=== PATIENT | female | born 1960 | race Caucasian/White ===

== ENCOUNTER 2021-04-01 05:21 | Inpatient (IN) | payer MEDICAID, SELFPAY ==
[2021-04-01] VITALS (13 sets, daily range): BP systolic 136–162; BP diastolic 79–100; PULSE 86–102; RESP 16–20; TEMP 36.7–37; O2SAT 90–96; BMI 40.9
--- NOTE | 2021-04-01 05:07 | HP.PCM.HOS_ITS ---
HPI - General General Date of Admission: 04/01/21 HPI Narrative Patient is a 60-year-old female with a significant history of hypertension; depression and anxiety who presented to outside Hospital ED ([facility]) with a syncopal episode. Patient was was subsequent transferred to a hospital.Reportedly patient was making noodles. She felt lightheaded; passed out and knocked down a bottle. Her family heard a thud and went over. Importantly 2 weeks ago she had influenza vaccination. Three to four days later she became fatigued and had malaise. She attributed her symptoms to influenza. However patient was encouraged to take the Covid test which she did 8 days before presenting to outside hospital ED ([facility]). Her Covid test came back positive. Patient reports dry coughing and muscle aches. Further, she has decreased oral intake. At outside hospital her oxygen saturation was 91% on room air initially. When an attempt was made to wean her to room and her oxygen saturation was 70 to 80%. After a couple of hours at emergency department a second attempt was made to wean oxygen off and her oxygen saturation dropped to 87%. At the emergency department patient was given a liter of normal saline and then placed on maintenance fluid at 200 mL/h. Labs at outside hospital showed negative troponin; albumin of 3.4; potassium of 3.2; sodium of 140 and creatinine of 1.27. Urinalysis showed positive nitrites; negative leukocyte esterase and 5-10 white blood cells. Patient denies urinary symptoms. [facility] Medical History Allergies Anxiety Depression Hypertension Home Medications cetirizine 10 mg PO DAILY 04/01/21 [History Last Taken 03/31/21] metoprolol succinate 25 mg PO DAILY 04/01/21 [History Last Taken 03/31/21] montelukast 10 mg PO DAILY 04/01/21 [History Last Taken 03/31/21] simvastatin 40 mg PO QHS 04/01/21 [History Last Taken 03/30/21] venlafaxine 150 mg PO DAILY 04/01/21 [History Last Taken 03/31/21] Allergy/AdvReac Type Severity Reaction Status Date / Time codeine Allergy Anaphylaxis Verified 04/01/21 04:45 Iodinated Contrast Media Allergy Hives Verified 04/01/21 04:45 [CONTRASTS] morphine Allergy Anaphylaxis Verified 04/01/21 04:45 Family History (Updated 04/01/21 @ 05:[address] Donte Madden MD) Other Cancer Surgical History Hx of section Hx of cholecystectomy Social History (Updated 04/01/21 @ 05:[address] Donte Madden MD) Smoking Status: Never smoker ROS ROS Narrative Constitutional: Denies fever, chills, fatigue, anorexia and change in weight Eyes: Denies blurry vision, change in eye color, change in vision, discharge from eye(s), double vision, erythema, eye pain, loss of vision or other HEENT: Denies abnormal hearing, dysphagia, ear pain, epistaxis, headache(s), hearing loss, nasal congestion, nasal discharge, post nasal drip, sinus pressure, sore throat or other Cardiovascular: Denies chest pain or palpitations. Denies dyspnea on exertion, orthopnea and paroxysmal nocturnal dyspnea Respiratory/Chest: Reports cough Denies phlegm production, shortness of breath with exertion and wheezing Gastrointestinal: Denies abdominal pain, coffee ground emesis, constipation, diarrhea, dyspepsia, hematemesis, hematochezia, loose stools, melena, nausea, vomiting or other Genitourinary: Denies burning urination, difficulty urinating, dysuria, hematuria, nocturia, urinary frequency, urinary hesitancy, urinary incontinence, urinary urgency or other Musculoskeletal: Reports myalgias. Denies arthralgias, back pain, joint pain, joint stiffness, joint swelling, , neck pain or other Neurologic: Denies abnormal gait, abnormal speech, confusion, disequilibrium, dizziness, focal weakness, headache(s), numbness, paresthesias, seizure-like activity, seizures, syncope, tingling, tremor(s) or other Psychiatric: Denies homicidal ideation, suicidal ideation or other Endocrinology: Denies change in body appearance, cold intolerance, excessive sweating, heat intolerance, polydipsia, polyuria or other Hematologic/Lymphatic: Denies anemia, easy bleeding, easy bruising, lymphadenopathy or other Integumentary: Denies rashes Allergic/Immunologic: Reports allergies. Denies hives, eczema, asthma or other Vital Signs Vital Signs Vital Signs: 04/01/21 04:38 Temperature 98.6 F Temperature Source Oral Pulse Rate 95 Respiratory Rate 20 H Blood Pressure 136/83 H Blood Pressure Mean 100 Blood Pressure Source Monitor Blood Pressure Position Semi-Fowlers Blood Pressure Location Left Forearm Pulse Ox 95 Oxygen Delivery Method Nasal Cannula Oxygen Flow Rate (L/min) 2 Weight Weight: 104.9 kg Body Mass Index (BMI) 40.9 Physical Exam Narrative Physical exam: General: Well-nourished, well-developed. Head: Normocephalic, atraumatic, no tenderness Eyes: PERRLA, EOMI ENT, no trauma, moist mucous membranes, no rhinorrhea Neck: Nontender, full range of motion, no spinal tenderness, deformities, step- off CVS: Regular rate and rhythm. S1-S2 present. No murmur, gallop or rub. Respiratory : Diminished; rales; no wheezes; chest wall nontender. Abdomen: Soft, nontender, nondistended, normal bowel sounds, no masses : Deferred Back: Nontender, no CVA tenderness, no midline spinal tenderness, deformities, step-offs Extremities: Nontender full range of motion, no trauma Skin: Normal color, no trauma, abrasions Neuro: Alert, oriented, cranial nerves II through XII grossly intact. Psychiatry: Normal mood. Normal affect. Not depressed. Not anxious. Assessment & Plan Assessment/Plan (1) Pneumonia due to COVID-19 virus: (2) Diarrhea: QUALIFIERS: Diarrhea type: infectious Qualified Code(s): A09 - Infectious gastroenteritis and colitis, unspecified PLAN: Acute hypoxemic respiratory failure secondary to SARS- COV 2 Patient was saturation of 70 to 80s requiring supplemental oxygenation. Supplemental oxygenation continued. Positive coronavirus test outpatient 8 days before presentation at the emergency department and on the day of presentation to the ED. Impression of chest x-ray by radiologist: Findings suspicious for COVID-19 pneumonia. Review of outside hospital labs showed creatinine of 1.27 and potassium of 3.2. CBC with white count of 4.1 and with lymphopenia. CBC and BMP ordered. Outside window of remdesivir. Discussed emergent department to give patient Decadron. Decadron ordered. Tylenol as needed for fever Mucinex ordered Syncope Secondary to Covid and dehydration. Received IV fluids at the emergency department. Treat Covid. Discussed with patient to hydrate herself orally. Orthostatic vitals ordered. Placed on telemetry. Dairrhea Likely secondary to covid Loperamide ordered DVT Prophylaxis Subcutaneous Lovenox Charges/Coding Visit Charges Inpatient E&M: 83895 Init Hosp L2
--- NOTE | 2021-04-01 07:05 | PCS.PANDOC ---
PANDEMIC DOCUMENTATION INITIATED: Date: 04/01/2021 Time: 1923
[2021-04-01 07:33] LABS: Absolute Lymphocyte Count 0.29 X10^3/uL (0.83-4.51); Absolute Neutrophil Count 2.8 X10^3/uL (2.0-7.7); Hematocrit 38.7 % (37-47); Hemoglobin 12.5 g/dL (12.0-15.0); Lymphocyte # 0.29 X10^3/ul (0.83-4.51); Lymphocyte % 8.8 % (19-41); Mean Corp Hgb Conc 32.3 g/dL (32-36); Mean Corpuscular Hgb 28.6 pg (27.0-32.0); Mean Corpuscular Volume 88.6 fL (81-99); Mean Platelet Vol. 9.3 fl (6.2-12.0); Monocyte# 0.16 X10^3/uL; Monocyte% 4.8 % (0-10); NRBC Flagged by Analyzer 0 % (0-5); Neutrophil # 2.84 X10^3/uL (2.7-7.7); Neutrophil % 86.1 % (47-70); POSITIVE DIFFERENTIAL YES; Platelet Count 180 K/mm3 (150-450); RBC Distribution Width CV 13.7 % (11.6-14.6); RBC Distribution Width SD 44.5 fl (35.1-43.9); Red Blood Count 4.37 M/mm3 (4.2-5.4); White Blood Count 3.3 K/mm3 (4.4-11.0)
[2021-04-01 07:36] LABS: Differential Indicated SCAN CRITERIA MET
[2021-04-01 07:59] LABS: Anion Gap 6 (5-15); BUN 11 mg/dL (7-18); BUN/Creat Ratio 9.6 RATIO (10-20); Calcium,Total 8.4 mg/dL (8.5-10.1); Chloride 104 mmol/L (98-107); Creatinine, Serum 1.14 mg/dL (0.55-1.02); EST Glomerular Filtration Rate 51 mL/min (>60); Est Glom Filt Rate - Afr Amer 62 mL/min (>60); Estimated Creatinine Clearance 42.33 ml/min; Glucose 134 mg/dL (74-106); Sodium Level 138 mmol/L (136-145)
[2021-04-01] MEDS: Menthol/Lanolin/Calamine/Znox 113 GM Tube 1 APPLIC TOPICAL ×2 (09:05→20:45)
[2021-04-01] MEDS: dexAMETHasone 10 MG/ML Vial 6 MG IV (09:06)
[2021-04-01] MEDS: Nystatin Powder 15gm Bottle 1 APPLIC TOPICAL ×2 (09:06→20:46)
[2021-04-01] MEDS: 0.9% Saline Lock 10 ML Syringe IV (09:06)
[2021-04-01] MEDS: guaiFENesin 1,200 MG Tablet 1200 MG PO ×2 (09:06→20:45)
[2021-04-01 09:44] LABS: Procalcitonin 0.21 ng/mL (0.00-0.09)
--- NOTE | 2021-04-01 10:10 | CASEMGMT ---
Addendum entered by Gayathri Art 04/01/21 11:23: TC to [facility], they are able to provide O2 to [place] from a different location. Per [place], the referral will be faxed to [facility], they will provide the portable O2 and then forward the referral to the closest office to [place] for the concentrator set up. Original Note: KISHA PRATT Assessment: Face to Face with pt for initial transition planning/care coordination assessment. RN TERENCE introduced self and role at [facility], pt voices understanding and consents to assessment. Pt is A/O x4 and answers all questions appropriately at this time. Pt lying in bed with O2 on in no distress. Care providers, pharmacy, and demographics verified/updated. Admitting Dx: COVID PNA PCP:Jennifer Christie Specialists:Pt denies. Preferred Pharmacy: [facility] while inpatient Insurance: [facility] Prescription Benefit: yes LW/HPOA: Pt denies having a LW/DPOA and denies need for info regarding AD. LNOK: Yoan Nieto, carlyle Living Arrangements: Pt lives with son and dil and their 5 children in a ground level apt with no steps to enter. Pt reports she is I in ADL's and denies concerns at home. Transportation: Pt drives self and denies concerns with transportation. DME/HHC/SNF: Pt denies having any DME, HHC or SNF stays. Pt states she was first tested for COVID with a home test and then was tested at [facility]. She states her son is also positive and two of her grandchildren. She states she cannot quarantine from family in the apartment as there is only one bathroom. The adults use the bedrooms and the living room is made into make shift bedrooms for the grandchildren. She does have family who can provide them with groceries and supplies. She states they are all quarantining in the home. Discussed local in network DME companies should pt need to go home with home O2, she has no preference. Pt states no concerns with going home at time of dc. Pt states no further concerns/needs. CM to follow. Advised pt to ask CM if any further question/concerns/needs arise, voices understanding. Pt Goal: Home Plan: Home, follow for O2.
[2021-04-01] MEDS: Enoxaparin 30 MG/0.3 ML Syringe SC ×2 (10:52→20:45)
--- NOTE | 2021-04-01 16:02 | PCS.PANDOC ---
PANDEMIC DOCUMENTATION INITIATED: Date: 01/03/2021 Time: 190
--- NOTE | 2021-04-01 17:00 | PN.HOSP_ITS ---
Subjective Subjective The patient states that she is much feeling better. She states that she has a decent appetite. She reports that her fatigue is improved and her breathing is stable. She remains on 2 L nasal cannula with oxygen saturations 94 to 96%. I did drop her to 1 L while is at the bedside. She is interested in possibly g oing home tomorrow if she can maintain stability through the night as far as her oxygenation goes. Objective Data Objective Data Vital Signs: Vital Signs Temp Pulse Resp BP Pulse Ox 98.5 F 93 16 137/79 H 95 04/01/21 14:16 04/01/21 14:16 04/01/21 14:16 04/01/21 14:16 04/01/21 14:16 Oxygen Flow Rate (L/min) 2 Oxygen Delivery Method Nasal Cannula Weight: 104.9 kg Body Mass Index (BMI) 40.9 Intake & Output: Intake and Output for Last 24 Hours 03/30/21 03/31/21 04/01/21 23:59 23:59 23:59 Intake Total 400 / 400 Output Total 700 / 700 Balance -300 / -300 Lab / Micro Data Result Diagrams: 04/01/21 07:17 04/01/21 07:17 Labs: Laboratory Results - last 24 hr 04/01/21 07:17: Procalcitonin 0.21 H 04/01/21 07:17: WBC 3.3 L, RBC 4.37, Hgb 12.5, Hct 38.7, MCV 88.6, MCH 28.6, MCHC 32.3, RDW Std Deviation 44.5 H, RDW Coeff of [place] 13.7, Plt Count 180, MPV 9.3, Immature Gran % (Auto) 0.300, Neut % (Auto) 86.1 H, Lymph % (Auto) 8.8 L, [place] % (Auto) 4.8, Eos % (Auto) 0.0, Baso % (Auto) 0.0, Absolute Neuts (auto) 2.8, Absolute Lymphs (auto) 0.29 L, Nucleated RBC % 0 04/01/21 07:17: Sodium 138, Potassium 4.0, Chloride 104, Carbon Dioxide 28.0, Anion Gap 6, BUN 11, Creatinine 1.14 H, Estim Creat Clear Calc 42.33, Est GFR (MDRD) Af Amer 62, Est GFR (MDRD) Non-Af 51 L, BUN/Creatinine Ratio 9.6 L, Glucose 134 H, Calcium 8.4 L Physical Exam Const alert, oriented x3 and no apparent distress Constitutional Narrative: Morbidly obese white female lying in bed watching television, appears comfortable, nontoxic Exam Limitations: no limitations Nutritional Appearance: morbidly obese HEENT head/scalp atraumatic, moist oral mucous membranes and oropharynx normal HEENT Narrative: Mallampati 2, no thrush Head and Scalp: normocephalic Resp normal respiratory effort, no retractions, no use of accessory muscles and clear to auscultation bilaterally Resp Narrative: Diminished but clear Auscultation: Negative for crackles, rales, rhonchi or wheezes Cardio regular rate, regular rhythm, S1 normal heart sound, S2 normal heart sound, no murmurs, no rub, no gallops, no clicks and no JVD GI normal to inspection, nondistended, normoactive bowel sounds, soft to palpation, non-tender and non-distended Extremity no clubbing, cyanosis or edema Peripheral Pulses: Yes pulses 2+ throughout Neuro oriented x3, moves all extremities and no focal motor deficits Sensorium / Orientation: awake and alert Speech: speech normal Assessment & Plan Assessment/Plan (1) Pneumonia due to COVID-19 virus: (2) Acute and chronic respiratory failure with hypoxia: (3) Syncope: (4) Diarrhea: QUALIFIERS: Diarrhea type: infectious Qualified Code(s): A09 - Infectious gastroenteritis and colitis, unspecified PLAN: Acute hypoxic respiratory failure secondary to COVID-19 virus -Patient is not vaccinated -Continue Decadron day 2 10 -Patient was unfortunately out of the window for remdesivir -Patient is stable on 2 L nasal cannula with oxygen saturations 94 to 96% -I weaned to 1 L -Continue incentive spirometer and Pep therapy -Mucinex -Encourage prone lying -We will need 20 days of isolation from symptom onset -If patient remains stable on 1 to 2 L nasal cannula and ambulatory SPO2 is less than 6 L tomorrow I told her that we would look at discharging her as long as she could maintain a close eye on her oxygen saturations and return to the emergency department if she worsened as she is very anxious to go to home -I did discuss with the patient that she may be vaccinated after she is out of quarantine Syncope -Resolved -Patient has no more feeling of lightheadedness -Orthostatic vitals were assessed when she arrived here but presented from outside hospital and heart already gotten IV fluids -No further events -Take enzymes were normal and EKG was unremarkable -Suspect related to poor p.o. intake and orthostasis Diarrhea -Patient has had no bowel movements here today documented -Per her report it has improved Hypertension -Continue metoprolol Hyperlipidemia -Continue simvastatin Allergies -Continue sertraline Depression -Continue venlafaxine Morbid obesity -BMI 41.0 -Recommend weight loss DVT prophylaxis -Enoxaparin 30 mg twice daily CODE STATUS -Full code verified on admission Charges/Coding Visit Charges Inpatient E&M: 68026 Subs Hosp L2
[2021-04-02] VITALS (14 sets, daily range): BP systolic 112–145; BP diastolic 62–86; PULSE 70–113; RESP 18; TEMP 36.1–36.8; O2SAT 85–98
[2021-04-02 08:17] LABS: Absolute Lymphocyte Count 0.51 X10^3/uL (0.83-4.51); Absolute Neutrophil Count 6.5 X10^3/uL (2.0-7.7); Hematocrit 37.2 % (37-47); Hemoglobin 11.9 g/dL (12.0-15.0); Lymphocyte # 0.51 X10^3/ul (0.83-4.51); Lymphocyte % 6.9 % (19-41); Mean Corpuscular Hgb 28.1 pg (27.0-32.0); Mean Corpuscular Volume 87.9 fL (81-99); Mean Platelet Vol. 9.5 fl (6.2-12.0); Monocyte% 4.1 % (0-10); NRBC Flagged by Analyzer 0 % (0-5); Neutrophil # 6.52 X10^3/uL (2.7-7.7); Neutrophil % 88.6 % (47-70); POSITIVE DIFFERENTIAL YES; Platelet Count 209 K/mm3 (150-450); RBC Distribution Width CV 13.8 % (11.6-14.6); RBC Distribution Width SD 44.2 fl (35.1-43.9); Red Blood Count 4.23 M/mm3 (4.2-5.4); White Blood Count 7.4 K/mm3 (4.4-11.0)
[2021-04-02 08:20] LABS: Differential Indicated SCAN CRITERIA MET
[2021-04-02 08:31] LABS: Anion Gap 5 (5-15); BUN 15 mg/dL (7-18); BUN/Creat Ratio 12.1 RATIO (10-20); Calcium,Total 8.8 mg/dL (8.5-10.1); Chloride 106 mmol/L (98-107); Creatinine, Serum 1.24 mg/dL (0.55-1.02); EST Glomerular Filtration Rate 47 mL/min (>60); Est Glom Filt Rate - Afr Amer 56 mL/min (>60); Estimated Creatinine Clearance 38.91 ml/min; Glucose 119 mg/dL (74-106); Potassium 3.6 mmol/L (3.5-5.1); Sodium Level 140 mmol/L (136-145)
[2021-04-02] MEDS: guaiFENesin 1,200 MG Tablet 1200 MG PO ×2 (09:37→21:46)
[2021-04-02] MEDS: Enoxaparin 30 MG/0.3 ML Syringe SC ×2 (09:37→21:46)
[2021-04-02] MEDS: dexAMETHasone 10 MG/ML Vial 6 MG IV (09:37)
[2021-04-02] MEDS: 0.9% Saline Lock 10 ML Syringe IV (09:38)
[2021-04-02] MEDS: Nystatin Powder 15gm Bottle 1 APPLIC TOPICAL ×2 (09:38→21:45)
[2021-04-02] MEDS: Menthol/Lanolin/Calamine/Znox 113 GM Tube 1 APPLIC TOPICAL ×2 (09:38→21:45)
[2021-04-02 09:40] LABS: Differential Comment SCANNED
[2021-04-02] MEDS: Pantoprazole Sodium 40 MG Tablet PO (13:13)
--- NOTE | 2021-04-02 13:24 | CASEMGMT ---
Nurse Michelle made CM aware that pt is requesting to complete AD at this time. TC to Romana BLACKBURN to make aware.
--- NOTE | 2021-04-02 13:24 | NURSING ---
patient requesting to speak to someone about getting Living will and DPOA done while here. Gayathri Diggs notified.
--- NOTE | 2021-04-02 16:21 | PCM.PN.HOSP ---
Subjective Subjective Patient is complaining of feeling gassy today. She states she takes omeprazole at home and Gas-X at times. The omeprazole not in her MAR so we will add this today. She was assessed for oxygenation at room air at rest she was 85% and improved to 95% at rest on 2 L and ambulated at 97% with 4 L. We were anticipating discharge but she had an episode of lightheadedness/presyncope with ambulation. Her telemetry strips were fine her vital signs were stable she was not hypoxic but states she gets this frequently at home when she is gassy. We will reevaluate tomorrow. She is accepting of this. Objective Data Objective Data Vital Signs: Vital Signs Temp Pulse Resp BP Pulse Ox 97.1 F L 111 H 18 124/62 H 85 04/02/21 09:00 04/02/21 13:39 04/02/21 09:00 04/02/21 09:00 04/02/21 12:48 Oxygen Flow Rate (L/min) [ 2 AMBULATING with Oxygen #1] Oxygen Flow Rate (L/min) [ 4 AMBULATING with Oxygen #2] Oxygen Flow Rate (L/min) [At 0 REST on Room Air] Oxygen Flow Rate (L/min) 2 Oxygen Delivery Method Nasal Cannula Weight: 104.9 kg Body Mass Index (BMI) 40.9 Intake & Output: Intake and Output for Last 24 Hours 03/31/21 04/01/21 04/02/21 23:59 23:59 23:59 Intake Total 400 / 400 280 / 280 Output Total 700 / 700 Balance -300 / -300 280 / 280 Medical Nutrition Assessment Dietitian: Malnutrition Criteria Met Start: 04/01/21 17:04 Freq: Status: Active Protocol: Document 04/01/21 17:04 EVELYN (Rec: 04/01/21 17:04 [facility] [id number]) Nutrition Malnutrition Evidence of Malnutrition Exists Yes Malnutrition (severe): Acute Illness/Injury Evidenced By Suboptimal Energy Intake ( Severe),Weight Loss (Severe) Clinical Problem Acute Disease or Injury Related Malnutrition Etiology related to acute illness and inability to consume adequate nutrition to meet pt est nutritional needs Signs/Symptoms as evidenced by n/v/d correctional officer captain, 3.7 % wt loss and <50% po intake x 2 wks correctional officer captain Status Active Problem Altered Nutrient-Related Laboratory Values Etiology related to steroid administration Signs/Symptoms as evidenced by gluc 134 Status Active Problem Recommendation Dietitian Recommendations/Changes Will continue Cardiac diet Will provide 120 ml ensure enlive w/ meals for increased nutrition if consumed d/t signs and symptoms of malnutrition Lab / Micro Data Result Diagrams: 04/02/21 07:47 04/02/21 07:47 Labs: Laboratory Results - last 24 hr 04/01/21 07:17: Diff Path Review September04/02/21 07:47: WBC 7.4, RBC 4.23, Hgb 11.9 L, Hct 37.2, MCV 87.9, MCH 28.1, MCHC 32.0, RDW Std Deviation 44.2 H, RDW Coeff of [place] 13.8, Plt Count 209, MPV 9.5, Immature Gran % (Auto) 0.400, Neut % (Auto) 88.6 H, Lymph % (Auto) 6.9 L, [place] % (Auto) 4.1, Eos % (Auto) 0.0, Baso % (Auto) 0.0, Absolute Neuts (auto) 6.5, Absolute Lymphs (auto) 0.51 L, Nucleated RBC % 0, Differential Comment SCANNED 04/02/21 07:47: Sodium 140, Potassium 3.6, Chloride 106, Carbon Dioxide 29.0, Anion Gap 5, BUN 15, Creatinine 1.24 H, Estim Creat Clear Calc 38.91, Est GFR (MDRD) Af Amer 56 L, Est GFR (MDRD) Non-Af 47 L, BUN/Creatinine Ratio 12.1, Glucose 119 H, Calcium 8.8 Physical Exam Const alert, oriented x3 and no apparent distress Constitutional Narrative: Morbidly obese white female lying in bed watching television, appears somewhat uncomfortable but nontoxic Exam Limitations: no limitations Nutritional Appearance: morbidly obese HEENT head/scalp atraumatic, moist oral mucous membranes and oropharynx normal Head and Scalp: normocephalic Resp normal respiratory effort, no retractions, no use of accessory muscles and clear to auscultation bilaterally Resp Narrative: Diminished but clear Auscultation: Negative for crackles, rales, rhonchi or wheezes Cardio regular rate, regular rhythm, S1 normal heart sound, S2 normal heart sound, no murmurs, no rub, no gallops, no clicks and no JVD GI normal to inspection, nondistended, normoactive bowel sounds, soft to palpation, non-tender and non-distended Extremity no clubbing, cyanosis or edema Peripheral Pulses: Yes pulses 2+ throughout Neuro oriented x3, moves all extremities and no focal motor deficits Sensorium / Orientation: awake and alert Speech: speech normal Assessment & Plan Assessment/Plan (1) Pneumonia due to COVID-19 virus: (2) Acute and chronic respiratory failure with hypoxia: (3) Syncope: (4) Diarrhea: QUALIFIERS: Diarrhea type: infectious Qualified Code(s): A09 - Infectious gastroenteritis and colitis, unspecified PLAN: Acute hypoxic respiratory failure secondary to COVID-19 virus -Patient is not vaccinated -Continue Decadron day 3 of 10 -Patient was unfortunately out of the window for remdesivir -Patient is stable on 2 L nasal cannula with oxygen saturations 94 to 96% -Continue incentive spirometer and Pep therapy -Mucinex -Encourage prone lying -We will need 20 days of isolation from symptom onset -We planned on discharge but patient had a presyncopal episode that she attributes to some gassiness and abdominal discomfort that she has periodically. She states she gets this at home as well periodically. I feel that we should continue to monitor at this point and reevaluate for discharge tomorrow -I did discuss with the patient that she may be vaccinated after she is out of quarantine Syncope -Resolved -Episode of lightheadedness/presyncope with ambulation today although patient's heart rate was fine blood pressure was good oxygen saturations were normal and telemetry was reviewed and showed nothing but mild tachycardia with a rate of 103 -Orthostatic vitals were assessed when she arrived here but presented from outside hospital and heart already gotten IV fluids -No further events -Take enzymes were normal and EKG was unremarkable -Suspect related to poor p.o. intake and orthostasis Diarrhea -Patient has had no bowel movements here today documented -Per her report it has improved Hypertension -Continue metoprolol Hyperlipidemia -Continue simvastatin Allergies -Continue sertraline GERD/bloating -Start PPI -Start simethicone -Patient states she is get this periodically at home Depression -Continue venlafaxine Morbid obesity -BMI 41.0 -Recommend weight loss DVT prophylaxis -Enoxaparin 30 mg twice daily CODE STATUS -Full code verified on admission Charges/Coding Visit Charges Inpatient E&M: 27705 Subs Hosp L2
[2021-04-02] MEDS: 0.9% Normal Saline 1,000 ML 75 ML IV (18:03)
[2021-04-03] VITALS (11 sets, daily range): BP systolic 123–136; BP diastolic 73–89; PULSE 67–98; RESP 18; TEMP 36.1–36.7; O2SAT 88–97
[2021-04-03 06:29] LABS: Anion Gap 5 (5-15); BUN 21 mg/dL (7-18); Calcium,Total 8.3 mg/dL (8.5-10.1); Chloride 108 mmol/L (98-107); EST Glomerular Filtration Rate 60 mL/min (>60); Est Glom Filt Rate - Afr Amer 72 mL/min (>60); Estimated Creatinine Clearance 48.25 ml/min; Glucose 111 mg/dL (74-106); Potassium 3.7 mmol/L (3.5-5.1); Sodium Level 141 mmol/L (136-145)
[2021-04-03] MEDS: 0.9% Normal Saline 1,000 ML 75 ML IV (06:30)
[2021-04-03] MEDS: Enoxaparin 30 MG/0.3 ML Syringe SC (09:39)
[2021-04-03] MEDS: guaiFENesin 1,200 MG Tablet 1200 MG PO (09:39)
[2021-04-03] MEDS: Pantoprazole Sodium 40 MG Tablet PO (09:39)
[2021-04-03] MEDS: dexAMETHasone 10 MG/ML Vial 6 MG IV (09:39)
[2021-04-03] MEDS: Menthol/Lanolin/Calamine/Znox 113 GM Tube 1 APPLIC TOPICAL (09:40)
[2021-04-03] MEDS: Nystatin Powder 15gm Bottle 1 APPLIC TOPICAL (09:40)
[2021-04-03] MEDS: Polyethylene Glycol 3350 17 GM PACKET PO (11:43)
--- NOTE | 2021-04-03 13:32 | DS.PCM_ITS ---
Providers Date of Admission: 04/01/21 Primary Care Physician: JOSE VANEGAS Reason For Visit: COVID PNEUMONIA Diagnosis Discharge Diagnosis (1) Pneumonia due to COVID-19 virus: Status: Acute Code(s): U07.1 - COVID-19; J12.82 - Pneumonia due to coronavirus disease 2019 (2) Acute and chronic respiratory failure with hypoxia: Status: Chronic Code(s): J96.21 - Acute and chronic respiratory failure with hypoxia (3) Syncope: Status: Acute Code(s): R55 - Syncope and collapse (4) Diarrhea: Status: Acute Code(s): R19.7 - Diarrhea, unspecified Qualifiers: Diarrhea type: infectious Qualified Code(s): A09 - Infectious gastroenteritis and colitis, unspecified Medications at Discharge Home Medications cetirizine 10 mg PO DAILY 04/01/21 metoprolol succinate 25 mg PO DAILY 04/01/21 montelukast 10 mg PO DAILY 04/01/21 simvastatin 40 mg PO QHS 04/01/21 venlafaxine 150 mg PO DAILY 04/01/21 dexamethasone [Decadron] 6 mg PO DAILY #8 tab 04/03/21 Hospital Course Operations None Procedures None Summary of Care Provided Minutes Spent on Discharge: 36 Hospital Course: Mrs. Nieto is a 60-year-old white female who presented to [facility] with a presyncopal episode and was subsequently transferred to [facility] on 04/01/2021. The patient was reportedly making noodles when she felt lightheaded and had a syncopal episode. The family heard a thud and went over. Her mental status returned to baseline very quickly but apparently her p.o. intake has been poor. Evidently 2 weeks ago she had her influenza vaccination and 3 to 4 days later she became fatigued and had malaise. She initially attributed symptoms to influenza but the patient was encouraged to take a Covid test which she did 8 days prior to presenting to the outside hospital which was positive. On admission she reported a dry cough and muscle aches with some intermittent diarrhea. She had significant decreased oral intake and her oxygen saturation at outside hospital was 91 percent on room air initially. She was attempted to be weaned off supplemental oxygen presenting facility but her oxygen saturation dropped to 87% and she was felt in need of admission. She was also given a liter of normal saline and then placed on maintenance fluids prior to transfer. At the outside hospital her troponin was negative, her potassium was 3.2 and her serum creatinine was elevated from baseline at 1.27. Her UA at the outside facility showed nitrites but negative for leuk esterase and only 5-10 white blood cells with no bacteria. On admission she was placed on Decadron but was on fortunately outside the window to start remdesivir. During her entire course her oxygen saturations maintained stability on 2 L. We evaluated her for discharge on 04/02/2021 but the patient had a presyncopal episode upon ambulating to the bathroom. Upon questioning her with regards to this she states she gets this periodically when she is having abdominal cramping which she was having at that time. I reviewed her telemetry at that time and it showed sinus tachycardia with a rate of 103, her oxygen saturation and blood pressures were stable at that time. Orthostatic vitals were assessed and were negative. Given that episode her discharge was held and she was reevaluated on 04/03/2021 and her symptoms of abdominal bloating were much improved and she was able to ambulate without difficulty on 2 L of oxygen. At rest she was 88% on room air and with ambulation she was 92% on 2 L. She will be discharged on Decadron 6 mg to complete a total of a 10-day course. This was faxed to her local pharmacy. She was also discharged on supplemental oxygen and instructed to quarantine until 04/09/2021 after which she is to follow-up with her PCP for oxygen wean. We also discussed her getting a home pulse oximetry unit to periodically check her oxygen levels at home. She was instructed to return to the hospital if her sats dropped below 90% on her supplemental oxygen. She voiced understanding and was anxious to be discharged. Discharge diagnoses: Acute hypoxic respiratory failure Syncope COVID-19 infection Diarrhea Dehydration Hypertension Hyperlipidemia Allergies GERD Depression Morbid obesity Physical Exam Const alert, oriented x3 and no apparent distress Constitutional Narrative: Morbidly obese white female sitting up in a chair next to the bedside talking on the phone but hangs up upon my arrival, appears comfortable, nontoxic General Appearance: cooperative, comfortable, well kempt and well developed Exam Limitations: no limitations Nutritional Appearance: morbidly obese HEENT normocephalic, head/scalp atraumatic, hearing grossly normal bilaterally, moist oral mucous membranes and oropharynx normal HEENT Narrative: Mallampati 3, no thrush Eyes PERRL, EOMs intact bilaterally and conjunctivae normal Eyes Narrative: No scleral icterus Neck no lymphadenopathy, supple and no JVD Neck Narrative: Trachea midline, no thyroid enlargement, short thick neck Resp normal respiratory effort, no retractions, no use of accessory muscles and clear to auscultation bilaterally Resp Narrative: Diminished but clear Auscultation: Negative for crackles, rales, rhonchi or wheezes Cardio regular rate, regular rhythm, S1 normal heart sound, S2 normal heart sound, no murmurs, no rub, no gallops, no clicks and no JVD GI normal to inspection, nondistended, normoactive bowel sounds, soft to palpation, non-tender and non-distended Extremity normal to inspection and no clubbing, cyanosis or edema Skin no rashes or lesions noted, no wounds, skin turgor normal and no jaundice Neuro oriented x3, CN's II-XII intact bilaterally, moves all extremities and no focal motor deficits Sensorium / Orientation: awake and alert Speech: speech normal Motor Exam: strength 5/5 throughout Psych affect normal Medical Records Data Medical Nutrition Assessment Dietitian: Malnutrition Criteria Met Start: 04/01/21 17:04 Freq: Status: Active Protocol: Document 04/01/21 17:04 EVELYN (Rec: 04/01/21 17:04 EVELYN [id number]) Nutrition Malnutrition Evidence of Malnutrition Exists Yes Malnutrition (severe): Acute Illness/Injury Evidenced By Suboptimal Energy Intake ( Severe),Weight Loss (Severe) Clinical Problem Acute Disease or Injury Related Malnutrition Etiology related to acute illness and inability to consume adequate nutrition to meet pt est nutritional needs Signs/Symptoms as evidenced by n/v/d seating captain, 3.7 % wt loss and <50% po intake x 2 wks seating captain Status Active Problem Altered Nutrient-Related Laboratory Values Etiology related to steroid administration Signs/Symptoms as evidenced by gluc 134 Status Active Problem Recommendation Dietitian Recommendations/Changes Will continue Cardiac diet Will provide 120 ml ensure enlive w/ meals for increased nutrition if consumed d/t signs and symptoms of malnutrition Weight / BMI Weight Weight: 104.9 kg Body Mass Index (BMI) 40.9 ABG / Lab / Microbiology Data Result Diagrams: 04/02/21 07:47 04/03/21 05:16 Laboratory: Laboratory Results - last 24 hr 04/03/21 05:16: Sodium 141, Potassium 3.7, Chloride 108 H, Carbon Dioxide 28.0, Anion Gap 5, BUN 21 H, Creatinine 1.00, Estim Creat Clear Calc 48.25, Est GFR (MDRD) Af Amer 72, Est GFR (MDRD) Non-Af 60, BUN/Creatinine Ratio 21.0 H, Gluc ose 111 H, Calcium 8.3 L D/C Instructions Discharge Diet: Low fat / Low cholesterol Discharge Activity: Return to Normal Activity Return to work on: 04/11/21 Meaningful Use Info Meaningful Use Diagnoses (Choose all that apply): None applicable Discharge Plan Admission Admit Date/Time: 04/01/21 05:21 Primary Reason for Your Visit: Acute Covid pneumonia Attending Provider: Cecilia Phelps Consulting Providers: Cecilia Phelps Instructions Additional Instructions / Restrictions: 1. Please complete Decadron as prescribed 2. Please follow-up with PCP after quarantine ends 3. Please self quarantine until 04/09/2021 4. Please wear oxygen as prescribed until follow-up with the physician for reassessment 5. Please obtain home pulse oximeter to watch oxygen saturations and return to the emergency department if oxygen saturations are less than 90% on supplemental oxygen provided at discharge Discharge Orders/Prescriptions Prescriptions: New dexamethasone [Decadron] 6 mg tablet 6 mg PO DAILY Qty: 8 RF: 0 Continued cetirizine 10 mg tablet 10 mg PO DAILY RF: 0 venlafaxine 150 mg capsule,extended release 24hr 150 mg PO DAILY RF: 0 simvastatin 40 mg tablet 40 mg PO QHS RF: 0 montelukast 10 mg tablet 10 mg PO DAILY RF: 0 metoprolol succinate 25 mg tablet extended release 24 hr 25 mg PO DAILY RF: 0 Referrals / Follow Up: JOSE VANEGAS [Other] (Follow-up in approximately 1 week after out of quarantine) Disposition Disposition (needs filled in before D/C Order can be placed): Home, Self Care Charges/Coding Visit Charges Inpatient E&M: [id number] Disch Hosp
[2021-04-04 13:09] LABS: Pathologist Review Reviewed
--- NOTE | 2021-04-04 15:03 | CASEMGMT ---
KISHA PRATT Discharge Follow-up Phone Call: RACIEL: Reyna Strata: 1 Call Date: 04/04/21 Discharge Date: 04/03/21 Time of Call: 1500 Duration: 3 min Admitting Diagnosis: Covid KISHA PRATT completed follow-up phone call after recent hospitalization. Patient states she is feeling much better. Patient had no further questions or concerns. Patient was able to fill prescriptions without any issues. Patient states oxygen was delivered without any issues. Patient had no further questions or concerns.
== END 2021-04-03 16:54 | disposition home or self-care (01) | DRG 137 ==
PROVIDERS: Hospitalist; Admitting Provider Internal Medicine; Visit Provider Internal Medicine
DX: U07.1 COVID-19 (principal); J12.82 Pneumonia due to coronavirus disease 2019; J96.11 Chronic respiratory failure with hypoxia; E66.01 Morbid (severe) obesity due to excess calories; Z68.41 Body mass index [BMI] 40.0-44.9, adult; I10 Essential (primary) hypertension; E78.5 Hyperlipidemia, unspecified; E86.0 Dehydration; K21.9 Gastro-esophageal reflux disease without esophagitis; F41.9 Anxiety disorder, unspecified; A09 Infectious gastroenteritis and colitis, unspecified; F32.A Depression, unspecified; Z79.899 Other long term (current) drug therapy
CPT/HCPCS: 36415; 80048; 84145; 85025; 94667; 94668; 94762; 97110; 97162; 97166; 97530; 97535; 97802; 99251; J7030; A4216; G0463